=== PATIENT | female | born 1945 | race Caucasian/White ===

== ENCOUNTER → 2016-11-02 | Outpatient (CLI) | payer MEDICARE | END | disposition home or self-care (01) | LOC: PETCFH 11:11 | PROVIDERS: ATTEND Urology | DX: C67.8 Malignant neoplasm of overlapping sites of bladder (principal); N13.30 Unspecified hydronephrosis; Z96.0 Presence of urogenital implants | CPT/HCPCS: 78306; A9503 ==

== ENCOUNTER → 2016-11-03 | Outpatient (CLI) | payer MEDICARE | END | disposition home or self-care (01) | LOC: PETCFH 09:17 | PROVIDERS: ATTEND Urology | DX: C67.8 Malignant neoplasm of overlapping sites of bladder (principal); K57.30 Diverticulosis of large intestine without perforation or abscess without bleeding; Z93.6 Other artificial openings of urinary tract status | CPT/HCPCS: 78815; A9552 ==

== ENCOUNTER → 2016-11-05 | Outpatient (CLI) | payer MEDICARE | END | disposition home or self-care (01) | LOC: RAD 13:09 | PROVIDERS: ATTEND Urology | DX: C67.8 Malignant neoplasm of overlapping sites of bladder (principal); N18.9 Chronic kidney disease, unspecified; N13.5 Crossing vessel and stricture of ureter without hydronephrosis; N13.30 Unspecified hydronephrosis; Z93.6 Other artificial openings of urinary tract status | CPT/HCPCS: 74425 ==

== ENCOUNTER → 2016-12-29 | Outpatient (CLI) | payer MEDICARE ==
[~2016-12-29] MED LIST: METO50TA82 PO
[2016-12-29 13:51] LABS: HEMATOCRIT 33.2 % (34.6-47.8); HEMOGLOBIN 10.8 g/dL (11.7-16.4); WHITE BLOOD COUNT 19.2 x10^3/uL (3.4-10)
[2016-12-29 13:57] LABS: ASPARTATE AMINO TRANSFERASE 11 U/L (15-37); BLOOD UREA NITROGEN 24 mg/dL (7-18)
== END | disposition home or self-care (01) ==
LOC: STAR 12:32
PROVIDERS: ATTEND Urology
DX: Z01.818 Encounter for other preprocedural examination (principal); C67.9 Malignant neoplasm of bladder, unspecified
CPT/HCPCS: 36415; 80053; 81001; 85025; 87086

== ENCOUNTER → 2016-12-31 | Outpatient (CLI) | payer MEDICARE | END | disposition home or self-care (01) | LOC: WOUND 13:34 | PROVIDERS: ATTEND Physician Assistant | DX: I10 Essential (primary) hypertension (principal); F17.210 Nicotine dependence, cigarettes, uncomplicated; Z85.51 Personal history of malignant neoplasm of bladder | CPT/HCPCS: G0463; WOU0463 ==

== ENCOUNTER 2019-03-06 09:47 | Inpatient (IN) ==
[~2019-03-06] VITALS: Ht 162.6 cm; Wt 46.9 kg
[~2019-03-06 09:47] MED LIST changes: +ENOX40SY4 SQ; +OXYC5CAP2 PO
[2019-03-06 10:35] LABS: MEAN CORPUSCULAR HEMOGLOBIN 29.2 pg (27.0-34.8); MEAN CORPUSCULAR VOLUME 91.2 fL (80-100); MEAN PLATELET VOLUME 6.2 fL (7.4-10.4); PLATELET COUNT 600 x10^3/uL (130-400); RED BLOOD COUNT 3.23 x10^6/uL (3.82-5.3)
[2019-03-06 10:43] LABS: HEMOGRAM NOTE RECHECKED
--- NOTE | 2019-03-06 10:43 | NUR ---
LATE ENTRY FOR TRIAGE NOTE. BIB EMS FROM HOME. ONSET OF "FEELING LIKE HEART RACING" FEELING INCREASED WITH ACTIVITY AND FELT BETTER WHEN LYING DOWN. +SOB BUT NO CP. DR MCGOWAN AT BEDSIDE, PT ASSESSMENT POC REVIEWED AND ORDERS REC'D.
--- NOTE | 2019-03-06 10:44 | NUR ---
PT IMMACIATED, COCCYX, SACRUM AREA WITH BLANCHABLE REDNESS AND ONE PEA SIZE AREA WITH SCAB FORMATION. SILICONE CREAM APPLIED AND PT PLACED ON WAFFLE MATTRESS.
[2019-03-06 10:46] LABS: ANION GAP 7 mmol/L (5-15); CALCIUM 8.1 mg/dL (8.5-10.1); CHLORIDE 118 mmol/L (98-107)
[2019-03-06 10:51] LABS: CREATININE 1.51 mg/dL (0.55-1.02); FREE T4 (FREE THYROXINE) 1.24 ng/dL (0.76-1.46); TROPONIN I < 0.015 ng/mL (0.000-0.045)
[2019-03-06 10:56] LABS: MD YES
[2019-03-06 10:57] LABS: ANISOCYTOSIS 1+; BAND#(MANUAL) 1.19 x10^3/uL; BANDS%(MANUAL) 3 % (0-7); LYMPH#(MANUAL) 1.58 x10^3/uL (1-3.4); LYMPHS% (MANUAL) 4 % (22-44); MONOS% (MANUAL) 1 % (2-9); SEG#(MANUAL) 36.43 x10^3/uL (1.8-6.8); SEGS% (MANUAL) 92 % (42-75)
[2019-03-06 11:00] LABS: ECHINOCYTES 1+; OVALOCYTES 1+
[2019-03-06 11:01] LABS: <PLATELET ESTIMATE> INCREASED; <PLT MORPHOLOGY> NORMAL PLT MORPH
--- NOTE | 2019-03-06 12:10 | NUR ---
DR MCGOWAN AT BEDSIDE. LAB RESULTS, POC FOR ADMIT DISCUSSED AND QUESTIONS ANSWERED.
--- NOTE | 2019-03-06 12:17 | NUR ---
SILICONE CREAM APPLIED TO COCCYX AREA AND OPTIFOAM DRESSING APPLIED. SBAR RPT GIVEN TO PRAVEENA PRABHAKAR. ASSESSMENT AND POC DISCUSSED.
--- NOTE | 2019-03-06 12:18 | NUR ---
MD ASKED FOR BLOOD CULTURES AND LACTIC ACID PT MEETING SIRS AND POSSIBLY MEET SEPSIS. MD WANTING FLUIDS. AWAIITNG ABX ORDER.
[2019-03-06] MEDS ORDERED: SODIUM CHLORIDE 0.9% 1,000ML IVBOLUS ONE (12:30)
[2019-03-06] MEDS ORDERED: OMNIPAQUE 350 MG/ML, 100ML BOTTLE ONE (13:09)
--- NOTE | 2019-03-06 13:09 | NUR ---
NO ABX PER MD. WANTING TO HOLD OFF CHRONIC ELEVATED WBC
--- NOTE | 2019-03-06 13:28 | NUR ---
PT INCONTIENT OF STOOL. PT CLEANED AND NEW DRESSING APPLIED TO COCCYX. SAMPLE COLLECTED AND WALKED TO LAB. MD INFORMED.
--- NOTE | 2019-03-06 13:59 | NUR ---
PT HAVING MORE LOOSE STOOLS X4, NEW SAMPLE COLLECTED AND WALKED TO LAB. SPOKE WITH PROVIDER, AT THIS TIME AGGREABLE TO RECTAL TUBE IT IS DIFFICULT TO KEEP PATIENT CLEAN AND PREVENT FURTHER INJURY TO SKIN BREAKDOWN ON COCCYX. PT PROVIDED WITH INES CARE AND RECTAL TUBE INSERTED. NO COMPLICATIONS.
--- NOTE | 2019-03-06 14:01 | NUR ---
PT PLACED ON ISOLATION SOON LOOSE STOOLS WERE PRESENT.
[2019-03-06 14:04] LABS: ALANINE AMINOTRANSFERASE 10 U/L (12-78); ALKALINE PHOSPHATASE 207 U/L (45-117); BILIRUBIN, DIRECT < 0.1 mg/dL (0.1-0.2); BILIRUBIN,INDIRECT 0.2 mg/dL (0.0-2.0); BILIRUBIN,TOTAL 0.3 mg/dL (0.2-1.0); TOTAL PROTEIN 6.8 g/dL (6.4-8.2)
--- NOTE | 2019-03-06 14:06 | NUR ---
ATTEMPTED TO CALL REPORT, ONC RN ON THE OTHER LINE WITH MD.
--- NOTE | 2019-03-06 14:22 | NUR ---
REPORT TO RHONDA GRISSOM.
[2019-03-06] MEDS ORDERED: SODIUM CHLORIDE 0.9% 1,000 ML IV SCH (14:38)
--- NOTE | 2019-03-06 14:41 | NUR ---
PT TO MRI, MRI TO TAKE PT UP TO 441
[2019-03-06 14:48] LABS: CLOSTRIDIUM DIFFICILE ANTIGEN NEGATIVE; CLOSTRIDIUM DIFFICILE TOXIN NEGATIVE (Negative)
[2019-03-06] MEDS ORDERED: VANCOMYCIN 50 MG/ML ORAL SUSP PO SCH (15:00)
[2019-03-06] MEDS ORDERED: LIDOCAINE 1%, 20ML ONE (15:03)
[2019-03-06] MEDS ORDERED: FENTANYL PF 100 MCG/2ML ONE ×2 (15:12)
[2019-03-06] MEDS ORDERED: NALOXONE 1 MG/ML, 2ML ONE (15:12)
[2019-03-06] MEDS ORDERED: MIDAZOLAM 1 MG/ML, 5ML ONE (15:12)
[2019-03-06] MEDS ORDERED: FLUMAZENIL 0.1 MG/1 ML, 5ML ONE (15:12)
[2019-03-06 17:00] VITALS: BP 139/68
[2019-03-06] MEDS: ENOXAPARIN 30 MG/0.3 ML SQ SCH (17:47)
[2019-03-06] MEDS: LACTOBACILLUS CHEW TABLET PO SCH ×2 (17:47→20:36)
[2019-03-06] MEDS: NICOTINE 7 MG/24 HR PATCH.TD24 TD SCH (17:48)
[2019-03-06] MEDS: OXYcodone IR 5MG TABLET PO SCH ×2 (17:50→23:21)
[2019-03-06] MEDS ORDERED: VANCOMYCIN PER PHARMACY MC PRN (18:00)
[2019-03-06] MEDS ORDERED: PHARMACOKINETIC MONITORING MC PRN (18:00)
[2019-03-06] MEDS: PIPERACILLIN/TAZO/PMX 3.375GM 50 ML IV SCH (18:20)
[2019-03-06 18:43] VITALS: BP 112/64
[2019-03-06] MEDS: VANCOMYCIN 900 MG in SODIUM CHLORIDE 0.9% 100 ML IV SCH (20:05)
[2019-03-06] MEDS: METOPROLOL TARTRATE 50 MG TABLET PO SCH (20:36)
[2019-03-06] MEDS: DIPHENOXYLATE/ATROPINE TABLET PO PRN (20:39)
[2019-03-07 00:24] VITALS: BP 102/58
[2019-03-07] MEDS: OXYcodone IR 5MG TABLET PO SCH ×6 (02:00→21:27)
[2019-03-07] MEDS: PIPERACILLIN/TAZO/PMX 3.375GM 50 ML IV SCH ×3 (02:19→18:40)
[2019-03-07] MEDS: ONDANSETRON ODT 4 MG PO PRN ×3 (03:22→19:56)
[2019-03-07 04:35] LABS: MEAN CORPUSCULAR HEMOGLOBIN 29.8 pg (27.0-34.8); MEAN CORPUSCULAR HGB CONC 32.2 g/dL (32.4-35.8); MEAN CORPUSCULAR VOLUME 92.5 fL (80-100); MEAN PLATELET VOLUME 6.9 fL (7.4-10.4); PLATELET COUNT 486 x10^3/uL (130-400); RED BLOOD COUNT 2.82 x10^6/uL (3.82-5.3); RED CELL DISTRIBUTION WIDTH 18.4 % (9.6-15.2)
[2019-03-07 04:55] LABS: ANION GAP 6 mmol/L (5-15); CALCIUM 7.7 mg/dL (8.5-10.1); CHLORIDE 118 mmol/L (98-107)
[2019-03-07 04:56] LABS: % IRON SATURATION 17 % (20-55); CREATININE 1.19 mg/dL (0.55-1.02); IRON LEVEL 25 mcg/dL (50-170); TOTAL IRON BINDING CAPACITY 144 mcg/dL (250-450)
[2019-03-07] MEDS: DIPHENOXYLATE/ATROPINE TABLET PO PRN ×2 (05:27→17:25)
[2019-03-07 05:40] LABS: MD YES
[2019-03-07 05:42] LABS: BAND#(MANUAL) 0.37 x10^3/uL; BANDS%(MANUAL) 1 % (0-7); LYMPH#(MANUAL) 0.74 x10^3/uL (1-3.4); LYMPHS% (MANUAL) 2 % (22-44); MONOS#(MANUAL) 0.74 x10^3/uL (0.3-2.7); MONOS% (MANUAL) 2 % (2-9); SEG#(MANUAL) 35.25 x10^3/uL (1.8-6.8); SEGS% (MANUAL) 95 % (42-75)
[2019-03-07 05:43] LABS: ANISOCYTOSIS 1+; ECHINOCYTES 1+; OVALOCYTES 1+
[2019-03-07 05:44] LABS: <PLATELET ESTIMATE> INCREASED; <PLT MORPHOLOGY> NORMAL PLT MORPH
[2019-03-07 06:25] VITALS: BP 107/62
[2019-03-07] MEDS: METOPROLOL TARTRATE 50 MG TABLET PO SCH ×2 (08:32→21:28)
[2019-03-07] MEDS: LACTOBACILLUS CHEW TABLET PO SCH ×3 (08:32→21:27)
[2019-03-07 12:10] VITALS: BP 107/56
[2019-03-07] MEDS: NICOTINE 7 MG/24 HR PATCH.TD24 TD SCH (14:37)
[2019-03-07] MEDS: ENOXAPARIN 30 MG/0.3 ML SQ SCH (14:37)
[2019-03-07] MEDS: LACTATED RINGERS 1,000 ML IV SCH (16:38)
[2019-03-07 17:04] LABS: CULTURE INDICATED? YES; MICROSCOPIC INDICATED
[2019-03-07 18:04] LABS: CRYPTOSPORIDIUM ANTIGEN Negative (Negative)
[2019-03-07 18:35] VITALS: BP 107/54
[2019-03-07] MEDS: ACETAMINOPHEN 325 MG TABLET PO PRN (19:56)
[2019-03-08] VITALS (8 sets, daily range): BP systolic 106–132; BP diastolic 43–73
[2019-03-08] MEDS: PIPERACILLIN/TAZO/PMX 3.375GM 50 ML IV SCH ×4 (01:57→21:45)
[2019-03-08] MEDS: LACTATED RINGERS 1,000 ML IV SCH ×2 (01:57→13:17)
[2019-03-08] MEDS: OXYcodone IR 5MG TABLET PO SCH ×7 (01:59→23:30)
[2019-03-08 04:45] LABS: MEAN CORPUSCULAR HEMOGLOBIN 29.3 pg (27.0-34.8); MEAN CORPUSCULAR HGB CONC 31.7 g/dL (32.4-35.8); MEAN CORPUSCULAR VOLUME 92.4 fL (80-100); MEAN PLATELET VOLUME 6.9 fL (7.4-10.4); PLATELET COUNT 376 x10^3/uL (130-400); RED CELL DISTRIBUTION WIDTH 18.9 % (9.6-15.2)
[2019-03-08 04:51] LABS: ANION GAP 4 mmol/L (5-15); CALCIUM 7.5 mg/dL (8.5-10.1); CHLORIDE 118 mmol/L (98-107); CREATININE 1.07 mg/dL (0.55-1.02)
[2019-03-08 05:45] LABS: MD YES
[2019-03-08 05:46] LABS: LYMPH#(MANUAL) 0.58 x10^3/uL (1-3.4); LYMPHS% (MANUAL) 2 % (22-44); MONOS#(MANUAL) 1.15 x10^3/uL (0.3-2.7); MONOS% (MANUAL) 4 % (2-9); SEG#(MANUAL) 27.07 x10^3/uL (1.8-6.8); SEGS% (MANUAL) 94 % (42-75)
[2019-03-08 05:47] LABS: ANISOCYTOSIS 1+; ECHINOCYTES 1+; OVALOCYTES 1+
[2019-03-08 05:48] LABS: <PLATELET ESTIMATE> ADEQUATE; <PLT MORPHOLOGY> NORMAL PLT MORPH
[2019-03-08] MEDS: VANCOMYCIN 900 MG in SODIUM CHLORIDE 0.9% 100 ML IV SCH (07:49)
[2019-03-08] MEDS: LACTOBACILLUS CHEW TABLET PO SCH ×3 (07:49→21:43)
[2019-03-08] MEDS: METOPROLOL TARTRATE 50 MG TABLET PO SCH ×2 (07:50→21:43)
[2019-03-08] MEDS ORDERED: DIPHENHYDRAMINE 12.5MG/5ML, 10ML UDC PO ONE (11:00)
[2019-03-08] MEDS: IRON SUCROSE COMPLEX 100MG/5ML IV SCH (11:02)
[2019-03-08] MEDS: NICOTINE 7 MG/24 HR PATCH.TD24 TD SCH (15:23)
[2019-03-08] MEDS: ENOXAPARIN 30 MG/0.3 ML SQ SCH (15:23)
[2019-03-08] MEDS: CALCIUM CARBONATE 500 MG TAB.CHEW PO PRN (19:08)
[2019-03-08] MEDS: ONDANSETRON 2MG/ML, 2ML IVPush PRN (22:33)
[2019-03-09] MEDS: OXYcodone IR 5MG TABLET PO SCH ×4 (00:08→12:49)
[2019-03-09 00:11] VITALS: BP 146/63
[2019-03-09] MEDS: PIPERACILLIN/TAZO/PMX 3.375GM 50 ML IV SCH ×4 (04:27→21:43)
[2019-03-09 04:51] LABS: MEAN CORPUSCULAR HEMOGLOBIN 29.8 pg (27.0-34.8); MEAN CORPUSCULAR HGB CONC 32.3 g/dL (32.4-35.8); MEAN CORPUSCULAR VOLUME 92.2 fL (80-100); MEAN PLATELET VOLUME 7.2 fL (7.4-10.4); PLATELET COUNT 421 x10^3/uL (130-400); RED BLOOD COUNT 3.44 x10^6/uL (3.82-5.3); RED CELL DISTRIBUTION WIDTH 17.9 % (9.6-15.2)
[2019-03-09 05:01] LABS: ANION GAP 7 mmol/L (5-15); CALCIUM 7.8 mg/dL (8.5-10.1); CHLORIDE 116 mmol/L (98-107); CREATININE 0.88 mg/dL (0.55-1.02); VANCOMYCIN,RANDOM 12.2 mcg/mL
[2019-03-09 05:57] LABS: MD YES
[2019-03-09 05:58] LABS: MONOS#(MANUAL) 0.74 x10^3/uL (0.3-2.7); MONOS% (MANUAL) 2 % (2-9)
[2019-03-09 05:59] LABS: LYMPH#(MANUAL) 0.37 x10^3/uL (1-3.4); LYMPHS% (MANUAL) 1 % (22-44); SEG#(MANUAL) 36.08 x10^3/uL (1.8-6.8); SEGS% (MANUAL) 97 % (42-75)
[2019-03-09 06:00] LABS: <PLATELET ESTIMATE> INCREASED; <PLT MORPHOLOGY> NORMAL PLT MORPH; ANISOCYTOSIS 1+; ECHINOCYTES 1+; OVALOCYTES 1+
[2019-03-09 07:20] VITALS: BP 147/60
[2019-03-09] MEDS: CALCIUM CARBONATE 500 MG TAB.CHEW PO PRN (08:22)
[2019-03-09] MEDS: LACTOBACILLUS CHEW TABLET PO SCH ×3 (08:23→21:16)
[2019-03-09] MEDS: METOPROLOL TARTRATE 50 MG TABLET PO SCH ×2 (08:29→21:16)
[2019-03-09] MEDS: IRON SUCROSE COMPLEX 100MG/5ML IV SCH (09:00)
[2019-03-09] MEDS: ACETAMINOPHEN 325 MG TABLET PO PRN (10:10)
[2019-03-09] MEDS: VANCOMYCIN 900 MG in SODIUM CHLORIDE 0.9% 100 ML IV SCH (13:25)
[2019-03-09 14:35] VITALS: BP 110/55
[2019-03-09] MEDS: ENOXAPARIN 30 MG/0.3 ML SQ SCH (16:05)
[2019-03-09] MEDS: OxyconTIN ER 10 MG TAB.ER PO SCH (16:05)
[2019-03-09] MEDS: NICOTINE 7 MG/24 HR PATCH.TD24 TD SCH (16:19)
[2019-03-09 18:51] VITALS: BP 140/55
[2019-03-09] MEDS: SIMETHICONE 125 MG CHEW TAB PO SCH (21:16)
[2019-03-09] MEDS: ONDANSETRON 2MG/ML, 2ML IVPush PRN (21:47)
[2019-03-10 03:49] VITALS: BP 142/61
[2019-03-10] MEDS: OxyconTIN ER 10 MG TAB.ER PO SCH ×2 (03:51→16:16)
[2019-03-10] MEDS: PIPERACILLIN/TAZO/PMX 3.375GM 50 ML IV SCH ×4 (03:57→21:58)
[2019-03-10] MEDS: CALCIUM CARBONATE 500 MG TAB.CHEW PO PRN (03:59)
[2019-03-10 07:18] VITALS: BP 155/65
[2019-03-10] MEDS: SIMETHICONE 125 MG CHEW TAB PO SCH ×4 (07:41→20:14)
[2019-03-10] MEDS: ACETAMINOPHEN 325 MG TABLET PO PRN ×2 (07:41→16:16)
[2019-03-10 08:00] LABS: MEAN CORPUSCULAR HGB CONC 31.5 g/dL (32.4-35.8); PLATELET COUNT 463 x10^3/uL (130-400); RED BLOOD COUNT 3.73 x10^6/uL (3.82-5.3); RED CELL DISTRIBUTION WIDTH 18.9 % (9.6-15.2)
[2019-03-10 08:09] LABS: ANION GAP 6 mmol/L (5-15); CHLORIDE 116 mmol/L (98-107); CREATININE 0.96 mg/dL (0.55-1.02)
[2019-03-10 08:28] LABS: MD YES
[2019-03-10 08:31] LABS: ANISOCYTOSIS 1+; BAND#(MANUAL) 0.45 x10^3/uL; BANDS%(MANUAL) 1 % (0-7); LYMPH#(MANUAL) 0.45 x10^3/uL (1-3.4); LYMPHS% (MANUAL) 1 % (22-44); MONOS#(MANUAL) 2.68 x10^3/uL (0.3-2.7); MONOS% (MANUAL) 6 % (2-9); SEG#(MANUAL) 41.12 x10^3/uL (1.8-6.8); SEGS% (MANUAL) 92 % (42-75)
[2019-03-10 08:32] LABS: ECHINOCYTES 1+
[2019-03-10 08:33] LABS: <PLATELET ESTIMATE> INCREASED; <PLT MORPHOLOGY> NORMAL PLT MORPH; OVALOCYTES 1+
[2019-03-10] MEDS: LACTOBACILLUS CHEW TABLET PO SCH ×3 (10:42→20:14)
[2019-03-10] MEDS: IRON SUCROSE COMPLEX 100MG/5ML IV SCH (10:43)
[2019-03-10] MEDS: METOPROLOL TARTRATE 50 MG TABLET PO SCH ×2 (10:48→20:16)
[2019-03-10] MEDS ORDERED: POTASSIUM CHLORIDE 20 MEQ TAB.ER.PRT PO ONE (11:30)
[2019-03-10 12:40] VITALS: BP 138/53
[2019-03-10] MEDS: MAGNESIUM OXIDE 400 MG TABLET PO SCH ×2 (12:55→20:14)
[2019-03-10] MEDS: VANCOMYCIN 900 MG in SODIUM CHLORIDE 0.9% 100 ML IV SCH (14:02)
[2019-03-10] MEDS: NICOTINE 7 MG/24 HR PATCH.TD24 TD SCH (16:11)
[2019-03-10] MEDS: ENOXAPARIN 30 MG/0.3 ML SQ SCH (16:17)
[2019-03-10 18:08] VITALS: BP 144/65
[2019-03-11 01:06] VITALS: BP 147/71
[2019-03-11] MEDS: ACETAMINOPHEN 325 MG TABLET PO PRN (01:10)
[2019-03-11] MEDS: PIPERACILLIN/TAZO/PMX 3.375GM 50 ML IV SCH ×4 (03:54→23:21)
[2019-03-11] MEDS: OxyconTIN ER 10 MG TAB.ER PO SCH ×2 (03:54→16:54)
[2019-03-11 05:46] LABS: ANION GAP 5 mmol/L (5-15); CALCIUM 8.1 mg/dL (8.5-10.1); CHLORIDE 117 mmol/L (98-107); CREATININE 0.95 mg/dL (0.55-1.02)
[2019-03-11 07:10] VITALS: BP 139/58
[2019-03-11] MEDS: SIMETHICONE 125 MG CHEW TAB PO SCH ×4 (08:20→19:36)
[2019-03-11] MEDS: METOPROLOL TARTRATE 50 MG TABLET PO SCH ×2 (08:21→19:36)
[2019-03-11] MEDS: ENOXAPARIN 40 MG/0.4 ML SQ SCH (08:21)
[2019-03-11] MEDS: LACTOBACILLUS CHEW TABLET PO SCH ×3 (08:21→19:36)
[2019-03-11 10:03] LABS: MEAN CORPUSCULAR HGB CONC 31.2 g/dL (32.4-35.8); MEAN CORPUSCULAR VOLUME 92.9 fL (80-100); MEAN PLATELET VOLUME 7.7 fL (7.4-10.4); PLATELET COUNT 445 x10^3/uL (130-400); RED BLOOD COUNT 3.65 x10^6/uL (3.82-5.3); RED CELL DISTRIBUTION WIDTH 18.7 % (9.6-15.2)
[2019-03-11 10:43] LABS: MD YES
[2019-03-11 11:13] LABS: EOS#(MANUAL) 0.81 x10^3/uL (0.0-0.4); EOS% (MANUAL) 2 % (1-7); LYMPH#(MANUAL) 0.81 x10^3/uL (1-3.4); LYMPHS% (MANUAL) 2 % (22-44); MONOS#(MANUAL) 0.81 x10^3/uL (0.3-2.7); MONOS% (MANUAL) 2 % (2-9); SEG#(MANUAL) 37.88 x10^3/uL (1.8-6.8); SEGS% (MANUAL) 94 % (42-75)
[2019-03-11 11:14] LABS: <PLATELET ESTIMATE> INCREASED; <PLT MORPHOLOGY> NORMAL PLT MORPH; ANISOCYTOSIS 1+
[2019-03-11] MEDS: VANCOMYCIN 900 MG in SODIUM CHLORIDE 0.9% 100 ML IV SCH (12:06)
[2019-03-11] MEDS: OXYcodone/APAP 5/325MG TABLET PO PRN ×2 (12:15→19:18)
[2019-03-11 15:03] VITALS: BP 126/53
[2019-03-11] MEDS: NICOTINE 7 MG/24 HR PATCH.TD24 TD SCH (16:55)
[2019-03-11 18:59] VITALS: BP 136/63
[2019-03-12 01:46] VITALS: BP 167/75
[2019-03-12] MEDS: OXYcodone/APAP 5/325MG TABLET PO PRN ×3 (01:58→18:38)
[2019-03-12] MEDS: OxyconTIN ER 10 MG TAB.ER PO SCH ×2 (04:06→16:15)
[2019-03-12] MEDS: PIPERACILLIN/TAZO/PMX 3.375GM 50 ML IV SCH ×4 (05:06→23:29)
[2019-03-12 06:56] VITALS: BP 133/70
[2019-03-12 08:13] LABS: MEAN CORPUSCULAR HEMOGLOBIN 29.3 pg (27.0-34.8); MEAN CORPUSCULAR HGB CONC 31.9 g/dL (32.4-35.8); MEAN CORPUSCULAR VOLUME 91.9 fL (80-100); MEAN PLATELET VOLUME 6.9 fL (7.4-10.4); PLATELET COUNT 453 x10^3/uL (130-400); RED BLOOD COUNT 3.53 x10^6/uL (3.82-5.3); RED CELL DISTRIBUTION WIDTH 19.1 % (9.6-15.2)
[2019-03-12 08:23] LABS: MD YES
[2019-03-12 08:29] LABS: ALANINE AMINOTRANSFERASE 8 U/L (12-78); ALBUMIN 1.6 g/dL (3.4-5.0); ANION GAP 4 mmol/L (5-15); CALCIUM 7.7 mg/dL (8.5-10.1); CHLORIDE 116 mmol/L (98-107)
[2019-03-12 08:32] LABS: ALKALINE PHOSPHATASE 168 U/L (45-117); BILIRUBIN,TOTAL 0.3 mg/dL (0.2-1.0); CREATININE 0.91 mg/dL (0.55-1.02)
[2019-03-12 08:53] LABS: BAND#(MANUAL) 1.12 x10^3/uL; BANDS%(MANUAL) 3 % (0-7); EOS#(MANUAL) 0.37 x10^3/uL (0.0-0.4); EOS% (MANUAL) 1 % (1-7); LYMPH#(MANUAL) 1.12 x10^3/uL (1-3.4); LYMPHS% (MANUAL) 3 % (22-44); MONOS#(MANUAL) 0.37 x10^3/uL (0.3-2.7); MONOS% (MANUAL) 1 % (2-9); SEG#(MANUAL) 34.22 x10^3/uL (1.8-6.8); SEGS% (MANUAL) 92 % (42-75)
[2019-03-12 08:54] LABS: <PLATELET ESTIMATE> INCREASED; <PLT MORPHOLOGY> NORMAL PLT MORPH; ANISOCYTOSIS 1+; PMNS WITH VACUOLES 1+
[2019-03-12 08:56] LABS: OVALOCYTES 1+
[2019-03-12] MEDS: SIMETHICONE 125 MG CHEW TAB PO SCH ×4 (10:08→20:13)
[2019-03-12] MEDS: LACTOBACILLUS CHEW TABLET PO SCH ×3 (10:08→20:13)
[2019-03-12] MEDS: METOPROLOL TARTRATE 50 MG TABLET PO SCH ×2 (10:08→20:14)
--- NOTE | 2019-03-12 10:27 | NUR ---
Nursing activity sheet placed in room and reviewed with pt and nursing staff to be up in chair for meals and ambulating 3 times a day. Addendum: 03/12/19 at 1033 by Daysi Conklin PT Amended: Links added.
[2019-03-12 13:37] VITALS: BP 123/53
[2019-03-12] MEDS: VANCOMYCIN 900 MG in SODIUM CHLORIDE 0.9% 100 ML IV SCH (14:14)
[2019-03-12] MEDS: NICOTINE 7 MG/24 HR PATCH.TD24 TD SCH (16:16)
[2019-03-12 18:42] VITALS: BP 121/63
[2019-03-12] MEDS: ENOXAPARIN 40 MG/0.4 ML SQ SCH (19:00)
[2019-03-13 01:24] VITALS: BP 139/64
[2019-03-13] MEDS: OXYcodone/APAP 5/325MG TABLET PO PRN ×4 (01:34→18:06)
[2019-03-13] MEDS: OxyconTIN ER 10 MG TAB.ER PO SCH ×2 (04:26→15:24)
[2019-03-13 04:59] LABS: ANION GAP 4 mmol/L (5-15); CHLORIDE 117 mmol/L (98-107)
[2019-03-13 05:02] LABS: CALCIUM 7.5 mg/dL (8.5-10.1); CREATININE 0.85 mg/dL (0.55-1.02)
[2019-03-13] MEDS: PIPERACILLIN/TAZO/PMX 3.375GM 50 ML IV SCH (05:31)
[2019-03-13] MEDS: METOPROLOL TARTRATE 50 MG TABLET PO SCH ×2 (07:52→20:36)
[2019-03-13] MEDS: SIMETHICONE 125 MG CHEW TAB PO SCH ×4 (07:52→20:36)
[2019-03-13] MEDS: LACTOBACILLUS CHEW TABLET PO SCH ×3 (07:52→20:36)
[2019-03-13 08:32] LABS: MEAN CORPUSCULAR HGB CONC 31.3 g/dL (32.4-35.8); MEAN CORPUSCULAR VOLUME 92.5 fL (80-100); MEAN PLATELET VOLUME 7.5 fL (7.4-10.4); PLATELET COUNT 380 x10^3/uL (130-400); RED BLOOD COUNT 3.17 x10^6/uL (3.82-5.3); RED CELL DISTRIBUTION WIDTH 19.1 % (9.6-15.2)
[2019-03-13 09:00] VITALS: BP 137/58
[2019-03-13] MEDS: AMPICILLIN/SULBACTAM 3 GM in SODIUM CHLORIDE 0.9% 100 ML IV SCH ×2 (09:00→17:27)
[2019-03-13 09:20] LABS: MD YES
[2019-03-13 09:21] LABS: BAND#(MANUAL) 0.34 x10^3/uL; BANDS%(MANUAL) 1 % (0-7); MONOS#(MANUAL) 0.34 x10^3/uL (0.3-2.7); MONOS% (MANUAL) 1 % (2-9)
[2019-03-13 09:22] LABS: ANISOCYTOSIS 1+; LYMPH#(MANUAL) 1.36 x10^3/uL (1-3.4); LYMPHS% (MANUAL) 4 % (22-44); SEG#(MANUAL) 31.96 x10^3/uL (1.8-6.8); SEGS% (MANUAL) 94 % (42-75)
[2019-03-13 09:23] LABS: <PLATELET ESTIMATE> ADEQUATE; <PLT MORPHOLOGY> NORMAL PLT MORPH; ECHINOCYTES 1+; OVALOCYTES 1+
[2019-03-13] MEDS: NICOTINE 7 MG/24 HR PATCH.TD24 TD SCH (15:27)
[2019-03-13 15:44] VITALS: BP 143/63
[2019-03-13] MEDS ORDERED: DIPHENHYDRAMINE 25 MG CAPSULE ONE (18:45)
[2019-03-13] MEDS ORDERED: DIPHENHYDRAMINE 25 MG CAPSULE PO ONE (19:00)
[2019-03-13 19:22] VITALS: BP 135/54
[2019-03-13] MEDS: ENOXAPARIN 40 MG/0.4 ML SQ SCH (20:30)
[2019-03-14] MEDS: AMPICILLIN/SULBACTAM 3 GM in SODIUM CHLORIDE 0.9% 100 ML IV SCH ×2 (00:58→07:56)
[2019-03-14] MEDS: OXYcodone/APAP 5/325MG TABLET PO PRN ×2 (01:04→07:06)
[2019-03-14 01:58] VITALS: BP 140/61
[2019-03-14] MEDS: OxyconTIN ER 10 MG TAB.ER PO SCH (04:00)
[2019-03-14] MEDS: SIMETHICONE 125 MG CHEW TAB PO SCH ×2 (06:31→11:47)
[2019-03-14 07:30] VITALS: BP 135/76
[2019-03-14] MEDS: METOPROLOL TARTRATE 50 MG TABLET PO SCH (07:57)
[2019-03-14] MEDS: LACTOBACILLUS CHEW TABLET PO SCH (07:57)
== END 2019-03-14 12:29 | disposition hospice, home (50) | DRG 871 ==
LOC: ED 11:51 → EDIP 13:42 → 4NW 14:08
PROVIDERS: ADMIT Family Medicine; ATTEND Internal Medicine
PROC: 0WBH3ZX Excision of Retroperitoneum, Percutaneous Approach, Diagnostic (ICD-10-PCS; 2019-03-06)
PROC: 30233N1 Transfusion of Nonautologous Red Blood Cells into Peripheral Vein, Percutaneous Approach (ICD-10-PCS; principal; 2019-03-08)
DX: A41.9 Sepsis, unspecified organism (principal); E43 Unspecified severe protein-calorie malnutrition; C79.89 Secondary malignant neoplasm of other specified sites; C68.0 Malignant neoplasm of urethra; N17.9 Acute kidney failure, unspecified; R64 Cachexia; Z68.1 Body mass index [BMI] 19.9 or less, adult; C79.51 Secondary malignant neoplasm of bone; K52.9 Noninfective gastroenteritis and colitis, unspecified; K83.8 Other specified diseases of biliary tract; C67.9 Malignant neoplasm of bladder, unspecified; D50.9 Iron deficiency anemia, unspecified; D63.8 Anemia in other chronic diseases classified elsewhere; E83.42 Hypomagnesemia; E86.0 Dehydration; F17.210 Nicotine dependence, cigarettes, uncomplicated; G89.3 Neoplasm related pain (acute) (chronic); I10 Essential (primary) hypertension; K82.8 Other specified diseases of gallbladder; K81.1 Chronic cholecystitis; R00.2 Palpitations; Z66 Do not resuscitate; Z93.6 Other artificial openings of urinary tract status; Z92.3 Personal history of irradiation; Z92.21 Personal history of antineoplastic chemotherapy; Z90.710 Acquired absence of both cervix and uterus; B95.7 Other staphylococcus as the cause of diseases classified elsewhere; N74 Female pelvic inflammatory disorders in diseases classified elsewhere
CPT/HCPCS: 36415; 36430; 49180; 71045; 74177; 74181; 77012; 80048; 80053; 80076; 80202; 81001; 82040; 82728; 83540; 83550; 83605; 83735; 84100; 84145; 84439; 84443; 84484; 85025; 86850; 86900; 86923; 87040; 87046; 87070; 87075; 87086; 87186; 87205; 87324; 87328; 87329; 87427; 88305; 88341; 88342; 89055; 93005; 99156; 99157; C1894; G0378; J0295; J1650; J1756; J2250; J2405; J2543; J3010; J3370; Q0162; Q9967; J2310; J7030; J7120; P9016; Q0163